=== PATIENT | male | born 1995 | race Caucasian/White ===

== ENCOUNTER 2016-09-06 21:32 | Emergency (ER) | payer MEDICAID ==
[~2016-09-06] VITALS: Ht 172.7 cm; Wt 91.0 kg
[2016-09-06 21:39] VITALS: Ht 172.7 cm; Wt 91.0 kg
[2016-09-06] MEDS ORDERED: CEPH-443 PO (23:09)
--- NOTE | 2016-09-06 23:16 | ERD ---
ER Documentation Chief Complaint Date/Time DATE: 09/06/16 TIME: 23:12 Chief Complaint Laceration to the left knee x3 days HPI This is a 21-year-old male presents to the ER with a laceration to his left knee that he fell 3 days ago at work with a pair of scissors. Patient denies any fevers or chills. He does admit to some pain around the area. He denies any other symptoms at this time. He denies any numbness or tingling to the area. Bleeding has been controlled. Patient does not recall his last tetanus shot. ROS 12 point review of systems was done, all negative except per HPI. Medications Home Meds Active Scripts Cephalexin* (Keflex*) 500 Mg Capsule, 500 MG PO QID for 7 Days, CAP Prov:DARA JARRETT 09/06/16 Allergies Allergies: Coded Allergies: No Known Allergy (Unverified , 09/06/16) PMhx/Soc Medical and Surgical Hx: pt denies Medical Hx, pt denies Surgical Hx History of Surgery: No Anesthesia Reaction: No Hx Neurological Disorder: No Hx Psychiatric Problems: No Hx Alcohol Use: No Hx Substance Use: No Hx Tobacco Use: No Smoking Status: Never smoker Physical Exam Vitals Vital Signs Date Time Temp Pulse Resp B/P Pulse Ox O2 Delivery O2 Flow Rate FiO2 09/06/16 21:39 97.3 97 20 142/67 98 Physical Exam GENERAL: The patient is well developed and appropriate for usual state of health , in no apparent distress. HEENT: Atraumatic. CHEST: Clear to auscultation bilaterally. There are no rales, wheezes or rhonchi. HEART: Regular rate and rhythm. No murmurs, clicks, rubs or gallops. EXTREMITIES: Patient has full range of motion of his knee, he does not have any tenderness to palpation to the tibia-fibula and femur NEURO: Alert and oriented. SKIN: There is a 5 cm linear laceration to the left knee Procedures/MDM This is a 21-year-old male that presents to the ER with a laceration to his knee. At this time it is too late to close laceration. Area was irrigated with copious amounts of normal saline and a clean dressing was put in place. Patient will be sent home with Keflex. He was given a shot of Tdap. Without any complications. Patient is to follow-up with his primary care doctor within 1-2 days return to ER sooner if symptoms worsen. My medical decision making was shared with the patient he understands and agrees with plan. Departure Diagnosis: Primary Impression: Laceration Condition: Stable Patient Instructions: Laceration, All Additional Instructions: Call your primary care doctor TOMORROW for an appointment during the next 1-2 days.See the doctor sooner or return here if your condition worsens before your appointment time. DARA JARRETT Sep 06, 2016 23:15
[2016-09-06] MEDS ORDERED: DIPHTH/TET/ACEL PERTUSS (ADULT) 0.5 ML VIAL IM* ONE (23:30)
== END 2016-09-07 00:35 | disposition home or self-care (01) ==
LOC: FTE 21:32
DX: S81.012A Laceration without foreign body, left knee, initial encounter (principal); W27.2XXA Contact with scissors, initial encounter; Y92.89 Other specified places as the place of occurrence of the external cause; Z23 Encounter for immunization
CPT/HCPCS: 90471; 90715; Z7502

== ENCOUNTER 2018-05-22 02:47 | Emergency (ER) | payer MEDICAID ==
[~2018-05-22] VITALS: Ht 172.7 cm; Wt 92.5 kg
[~2018-05-22 02:47] MED LIST: CEPH-443 PO
[2018-05-22 03:09] VITALS: BP 135/75; PULSE 93; RESP 16; Ht 172.7 cm; Wt 92.5 kg
[2018-05-22] MEDS ORDERED: DIPHTH/TET/ACEL PERTUSS (ADULT) 0.5 ML VIAL IM* ONE (04:00)
[2018-05-22] MEDS ORDERED: ACETAMINOPHEN 325 MG TAB PO ONE (04:00)
[2018-05-22] MEDS ORDERED: LIDOCAINE 1% (MPF) 5 ML VIAL INJ ONE (04:00)
[2018-05-22] MEDS ORDERED: IBUP-1542 PO (04:58)
[2018-05-22] MEDS ORDERED: CEPH-443 PO (04:58)
--- NOTE | 2018-05-22 05:18 | ERD ---
ER Documentation Chief Complaint Chief Complaint PT reports laceration to LLE HPI 23-year-old male patient with no significant past medical history presents to the ED for a laceration he sustained to his left calf. Patient's reports that he was walking down to [facility] and, the sharp area of the lumen and excell ently cut his left calf as he grazed his leg over the stairway. Denies any fever, chills, nausea, vomiting, diarrhea, neck stiffness. Patient reports that he still able to walk however only the cut is painful. Denies any chest pain, shortness of breath, loss of sensation, loss of range of motion. ROS All systems reviewed and are negative except as per history of present illness. Medications Home Meds Active Scripts Ibuprofen* (Motrin*) 600 Mg Tab, 600 MG PO Q6, #30 TAB Prov:KIMBERLY SALAZAR PA-C 05/22/18 Cephalexin* (Keflex*) 500 Mg Capsule, 500 MG PO QID for 7 Days, CAP Prov:KIMBERLY SALAZAR PA-C 05/22/18 Cephalexin* (Keflex*) 500 Mg Capsule, 500 MG PO QID for 7 Days, CAP Prov:DARA JARRETT 09/06/16 Allergies Allergies: Coded Allergies: No Known Allergy (Unverified , 09/06/16) PMhx/Soc Medical and Surgical Hx: pt denies Medical Hx, pt denies Surgical Hx History of Surgery: No Anesthesia Reaction: No Hx Neurological Disorder: No Hx Psychiatric Problems: No Hx Alcohol Use: Yes (socially) Hx Substance Use: No Hx Tobacco Use: Yes (1/2 ppd) Smoking Status: Never smoker FmHx Family History: No diabetes, No coronary disease Physical Exam Vitals Vital Signs Date Temp Pulse Resp B/P (MAP) Pulse Ox O2 O2 Flow FiO2 Time Delivery Rate 05/22/18 98.9 93 16 135/75 96 03:09 (95) Physical Exam Const: [id number], well-nourished. In no acute distress. Head: Atraumatic, normocephalic Eyes: Normal Conjunctiva without injection ENT: Normal external ear, nose and mouth. Neck: Full range of motion. No meningismus. Resp: Clear to auscultation bilaterally. No wheezing, rhonchi, rales, or crackles. No accessory muscle use. No retractions. Cardio: Regular rate and rhythm, no murmurs Skin: No petechiae or rashes Back: No midline tenderness. No CVA tenderness. Ext: No cyanosis, or edema. Cap refill less than 2 seconds. Distal pulses intact bilaterally. 2 cm linear laceration noted on the left posterior calf with no surrounding erythema, edema, purulent discharge. Full range of motion of the bilateral knees, bilateral ankles. Neur: Awake and alert. Normal gait and coordination. Muscle strength 5/5. Sensation intact bilaterally. Psych: Normal Mood and Affect Results 24 hrs Current Medications Medications Dose Sig/Carole Start Time Status Last (Trade) Ordered Route PRN Stop Time Admin Dose Reason Admin Diphtheria/ 0.5 ml ONCE ONCE 05/22/18 DC 05/22/18 Tetanus/Acell IM* 04:00 03:45 Pertussis 05/22/18 (Adacel) 04:01 Lidocaine 5 ml ONCE ONCE 05/22/18 DC (Xylocaine INJ 04:00 1% (Mpf)) 05/22/18 04:01 650 mg ONCE ONCE 05/22/18 DC 05/22/18 Acetaminophen PO 04:00 03:44 (Tylenol 05/22/18 Tab) 04:01 Procedures/MDM 33-year-old male patient with no severe past medical history presents to ED complaining of a laceration noted on the left lower extremity. Patient is afebrile and nontoxic-appearing. Patient's blood pressure is 135/75. Blood Pressure Assessment: Patient's blood pressure was elevated (>120/80) but appears stable without evidence of hypertension emergency or urgency. The patient was counseled about the risks of hypertension and urged to pursue outpatient monitoring and therapy within a week with their primary care physician. Patient gave consent to perform laceration repair. Laceration Repair by me: Anesthesia: 5 cc 1% lidocaine locally Location: Left Calf Tendon/Joint/Nerves: No injury Foreign body: None detected after copious irrigation and exploration Technique: 3 4-0 Ethilon Simple Interrupted Sutures Complexity: No subcutaneous sutures/mucosal repair /edge excision Post Closure Length: [2] cm Patient's bleeding was easily controlled in the department and there is no indication of anemia. Tdap updated. Patient is neurovascularly intact. No evidence of compartment syndrome, neurologic injury, vascular injury, open joint, tendon laceration, or foreign body. Patient is appropriate for outpatient follow up. 48 hour wound check. Scar minimization instructions given. Instructed patient to return for suture removal in 7-10 days. Keflex was prescribed to patient for infection prevention. Instructed patient to return to the ED sooner for any worsening symptoms. Follow up with primary care physician in 1-2 days. Patient's questions were answered. Patient understood and agreed with discharge plan. Disclaimer: Inadvertent spelling and grammatical errors are likely due to EHR/dictation software use and do not reflect on the overall quality of patient care. Also, please note that the electronic time recorded on this note does not necessarily reflect the actual time of the patient encounter. Departure Diagnosis: Primary Impression: Laceration of left leg Encounter type: initial encounter Qualified Codes: S81.812A - Laceration without foreign body, left lower leg, initial encounter Condition: Stable Patient Instructions: Laceration, Extrem (Suture, Staple, Or Tape) Referrals: [facility] YOU HAVE RECEIVED A MEDICAL SCREENING EXAM AND THE RESULTS INDICATE THAT YOU DO NOT HAVE A CONDITION THAT REQUIRES URGENT TREATMENT IN THE EMERGENCY DEPARTMENT. FURTHER EVALUATION AND TREATMENT OF YOUR CONDITION CAN WAIT UNTIL YOU ARE SEEN I N YOUR DOCTORS OFFICE WITHIN THE NEXT 1-2 DAYS. IT IS YOUR RESPONSIBILITY TO MAKE AN APPOINTMENT FOR FOLOW-UP CARE. IF YOU HAVE A PRIMARY DOCTOR --you should call your primary doctor and schedule an appointment IF YOU DO NOT HAVE A PRIMARY DOCTOR YOU CAN CALL OUR PHYSICIAN REFERRAL HOTLINE AT IF YOU CAN NOT AFFORD TO SEE A PHYSICIAN YOU CAN CHOSE FROM THE FOLLOWING [facility] [address] [facility] [facility]. [facility] [address] [facility] [facility] [address] [facility] [facility] [address] [facility] [facility] [address] [facility]. [facility]. [address] [facility]. [facility] YOU HAVE RECEIVED A MEDICAL SCREENING EXAM AND THE RESULTS INDICATE THAT YOU DO NOT HAVE A CONDITION THAT REQUIRES URGENT TREATMENT IN THE EMERGENCY DEPARTMENT. FURTHER EVALUATION AND TREATMENT OF YOUR CONDITION CAN WAIT UNTIL YOU ARE SEEN IN YOUR DOCTORS OFFICE WITHIN THE NEXT 1-2 DAYS. IT IS YOUR RESPONSIBILITY TO MAKE AN APPOINTMENT FOR FOLOW-UP CARE. IF YOU HAVE A PRIMARY DOCTOR --you should call your primary doctor and schedule and appointment IF YOU DO NOT HAVE A PRIMARY DOCTOR YOU CAN CALL OUR PHYSICIAN REFERRAL HOTLINE AT . IF YOU CAN NOT AFFORD TO SEE A PHYSICIAN YOU CAN CHOSE FROM THE FOLLOWING [facility] INSTITUTIONS: [facility] [address] [place] [address] [facility] [address] [place] [address] [facility] [address] [place] [address] [facility] URGENT CARE/SPECIALTIES Additional Instructions: Call your primary care doctor TOMORROW for an appointment during the next 2-3 days.See the doctor sooner or return here if your condition worsens before your appointment time. Follow up in 2 days in your clinic for wound check. Follow up with your physician to remove the stitches:For Face wounds 5-7 days.For Elsewhere on the body 7-10 days. KIMBERLY SALAZAR PA-C May 22, 2018 05:18
== END 2018-05-22 05:14 | disposition home or self-care (01) ==
LOC: FTE 02:47
DX: S81.812A Laceration without foreign body, left lower leg, initial encounter (principal); W26.8XXA Contact with other sharp object(s), not elsewhere classified, initial encounter; Y92.9 Unspecified place or not applicable; Z23 Encounter for immunization; Z87.891 Personal history of nicotine dependence
CPT/HCPCS: 12001; 90471; 90715; Z7502; Z7610

== ENCOUNTER 2018-05-31 23:34 | Emergency (ER) | payer MEDICAID ==
[~2018-05-31] VITALS: Ht 172.7 cm; Wt 91.8 kg
[~2018-05-31 23:34] MED LIST changes: +IBUP-1542 PO
[2018-05-31 23:36] VITALS: Ht 172.7 cm; Wt 91.8 kg
[2018-06-01] MEDS ORDERED: NAPR-985 PO (00:53)
[2018-06-01 01:27] VITALS: BP 128/72; PULSE 80; RESP 15
--- NOTE | 2018-06-01 01:38 | ERD ---
ER Documentation Chief Complaint Chief Complaint STITCHED REMOVAL; STITCHES PLACED IN [id number] AGO HPI 23-year-old male presenting for suture removal of the left. Patient has a she was placed 10 days ago. He denies any problems with the wound site. Also complaining of pain to the left foot. He dropped an item at work and has had bruising around the injury. He has pain with ambulation. Patient denies other medical problems. NKDA. Surgical history denies. Social history denies ROS All systems reviewed and are negative except as per history of present illness. Medications Home Meds Active Scripts Naproxen* (Naprosyn*) 500 Mg Tablet, 500 MG PO BID PRN for PAIN AND/OR INFLAMMATION, #30 TAB Prov:SOY KAYE PA-C 06/01/18 Ibuprofen* (Motrin*) 600 Mg Tab, 600 MG PO Q6, #30 TAB Prov:KIMBERLY SALAZAR PA-C 05/22/18 Cephalexin* (Keflex*) 500 Mg Capsule, 500 MG PO QID for 7 Days, CAP Prov:KIMBERLY SALAZAR PA-C 05/22/18 Cephalexin* (Keflex*) 500 Mg Capsule, 500 MG PO QID for 7 Days, CAP Prov:DARA JARRETT 09/06/16 Allergies Allergies: Coded Allergies: No Known Allergy (Unverified , 06/01/18) PMhx/Soc Medical and Surgical Hx: pt denies Medical Hx, pt denies Surgical Hx History of Surgery: No Anesthesia Reaction: No Hx Neurological Disorder: No Hx Psychiatric Problems: No Hx Alcohol Use: Yes (socially) Hx Substance Use: No Hx Tobacco Use: Yes (1/2 ppd) Smoking Status: Current every day smoker FmHx Family History: No diabetes, No coronary disease, No other Physical Exam Vitals Vital Signs Date Temp Pulse Resp B/P (MAP) Pulse Ox O2 O2 Flow FiO2 Time Delivery Rate 05/31/18 96.5 81 19 146/63 99 23:36 (90) Physical Exam GENERAL: The patient is well-appearing, well-nourished, in no acute distress CHEST: Clear to auscultation bilaterally. There are no rales, wheezes or rhonchi. HEART: Regular rate and rhythm. No murmurs, clicks, rubs or gallops. No S3 or S4. EXTREMITIES: Equal pulses bilaterally. There is no peripheral clubbing, cyanosis or edema. No focal swelling or erythema. Full range of motion. Grossly neurovascularly intact. NEUROLOGIC: Alert and oriented. Cranial nerves II through XII intact. Motor strength in all 4 extremities with 5 out of 5 strength. Sensation grossly intact. Normal speech and gait. SKIN: Laceration site noted to the left calf with [address] No surrounding erythema or dehiscence. Procedures/MDM DIAGNOSTIC IMAGING REPORT Patient: CARLO DENG : 1995 Age: 23 Sex: M MR #: [id number] DOS: 06/01/18 0008 Ordering MD: SHEA KAYE PA-C Location: [facility] Room/Bed: PROCEDURE: XR Foot. CLINICAL INDICATION: Left foot pain. TECHNIQUE: AP, lateral and oblique views of the left foot was obtained. The images were reviewed on a PACS workstation. COMPARISON: None available FINDINGS: The talus and calcaneus are normal in appearance. The midfoot bones are unremarkable. The metatarsals and phalanges normal in appearance. There is no evidence of fracture. The metatarsophalangeal and interphalangeal joints are normal in appearance. There is no periarticular osteopenia or erosive changes. There is no significant soft tissue swelling or abnormal calcification. IMPRESSION: Normal radiographs of the left foot. No evidence of fracture. ER Course: 23-year-old male presenting left foot and suture removals. Patient's x-ray is within normal limits. Patient likely sustained. No suspicion for acute fracture dislocation. A low suspicion for patient is discharged stricter precautions and told to follow-up with primary care within 1-2 days for close evaluation. She is told symptoms change or worsen to immediately return to the ER. All questions answered at discharge Departure Diagnosis: Primary Impression: Visit for suture removal Additional Impression: Foot pain Condition: Stable Patient Instructions: Sprain Foot, Suture Removal, No Complication Referrals: [facility] YOU HAVE RECEIVED A MEDICAL SCREENING EXAM AND THE RESULTS INDICATE THAT YOU DO NOT HAVE A CONDITION THAT REQUIRES URGENT TREATMENT IN THE EMERGENCY DEPARTMENT. FURTHER EVALUATION AND TREATMENT OF YOUR CONDITION CAN WAIT UNTIL YOU ARE SEEN IN YOUR DOCTORS OFFICE WITHIN THE NEXT 1-2 DAYS. IT IS YOUR RESPONSIBILITY TO MAKE AN APPOINTMENT FOR FOLOW-UP CARE. IF YOU HAVE A PRIMARY DOCTOR --you should call your primary doctor and schedule an appointment IF YOU DO NOT HAVE A PRIMARY DOCTOR YOU CAN CALL OUR PHYSICIAN REFERRAL HOTLINE AT IF YOU CAN NOT AFFORD TO SEE A PHYSICIAN YOU CAN CHOSE FROM THE FOLLOWING [facility] CLINICS [facility] [address] [facility] [address] [facility] [address] [facility] [address] [facility] [address] [facility]. [facility]. [address] Additional Instructions: FOLLOW UP WITH YOUR PRIMARY CARE PHYSICIAN TOMORROW.Return to this facility if you are not improving as expected. SOY KAYE PA-C Jun 01, 2018 01:38
== END 2018-06-01 01:27 | disposition home or self-care (01) ==
LOC: FTE 23:34
DX: M79.672 Pain in left foot (principal)
CPT/HCPCS: 73630; Z7502